=== PATIENT | female | born 1945 | race Caucasian/White ===

== ENCOUNTER → 2020-12-14 | Outpatient (CLI) | payer OTHER | LOC: RAD 09:50 | DX: M25.561 Pain in right knee (principal); M25.562 Pain in left knee; M17.0 Bilateral primary osteoarthritis of knee | CPT/HCPCS: 73564 ==

== ENCOUNTER → 2021-08-13 | Day surgery (SDC) | payer OTHER ==
[~2021-08-13] VITALS: Ht 165.1 cm; Wt 64.0 kg
[~2021-08-13] MED LIST: COLACE100 MG PO; LISINOPRIL5 MG PO
[2021-08-13 10:47] LABS: HEMOGLOBIN 12.7 gm/dl (12.3-15.3); RED BLOOD COUNT 4.38 M/UL (4.00-5.10); WHITE BLOOD COUNT 7.1 K/UL (4.5-11.0)
[2021-08-13 11:02] LABS: BUN/CREATININE RATIO 21 (0-10)
== END | disposition home or self-care (01) ==
LOC: OR 09:42
PROVIDERS: Orthopaedic Surgery
DX: S52.572A Other intraarticular fracture of lower end of left radius, initial encounter for closed fracture (principal); G56.02 Carpal tunnel syndrome, left upper limb; W19.XXXA Unspecified fall, initial encounter; I10 Essential (primary) hypertension; M81.0 Age-related osteoporosis without current pathological fracture; Z20.822 Contact with and (suspected) exposure to COVID-19; Z79.899 Other long term (current) drug therapy; Z90.49 Acquired absence of other specified parts of digestive tract
CPT/HCPCS: 73110; 76000; 80048; 85027; 93005; C1713; J0690; J1100; J2001; J2250; J2405; J2704; J2795; J3010; J7120; U0002

== ENCOUNTER 2021-12-21 09:35 | Inpatient (IN) | payer OTHER ==
[~2021-12-21] VITALS: Ht 165.1 cm; Wt 57.8 kg
[2021-12-21 11:07] LABS: HEMOGLOBIN 13.1 gm/dl (12.3-15.3); RED BLOOD COUNT 4.7 M/UL (4.00-5.10); WHITE BLOOD COUNT 6.3 K/UL (4.5-11.0)
[2021-12-21 11:27] LABS: BUN/CREATININE RATIO 16 (0-10)
[2021-12-21] MEDS ORDERED: MACROBID 100 M100 M1 PO (14:27)
[2021-12-21] MEDS ORDERED: CALCIUM 1,0001 EACH PO (14:28)
[2021-12-21] MEDS ORDERED: VITAMIN B-121000 MCG PO (14:29)
[2021-12-21] MEDS ORDERED: LAXATIVE25 MG PO (14:29)
[2021-12-21] MEDS ORDERED: BIOTIN1 M1 PO (14:29)
[2021-12-22 05:15] LABS: HEMOGLOBIN 11.5 gm/dl (12.3-15.3); WHITE BLOOD COUNT 5.8 K/UL (4.5-11.0)
[2021-12-22 05:17] LABS: RED BLOOD COUNT 4.18 M/UL (4.00-5.10)
[2021-12-22 05:33] LABS: BUN/CREATININE RATIO 12 (0-10)
[2021-12-22 11:19] LABS: HEMOGLOBIN 13.7 gm/dl (12.3-15.3); RED BLOOD COUNT 4.95 M/UL (4.00-5.10); WHITE BLOOD COUNT 7.6 K/UL (4.5-11.0)
[2021-12-23 01:07] LABS: HEMOGLOBIN 11.5 gm/dl (12.3-15.3); RED BLOOD COUNT 4.16 M/UL (4.00-5.10); WHITE BLOOD COUNT 6.5 K/UL (4.5-11.0)
[2021-12-23 02:16] LABS: BUN/CREATININE RATIO 14 (0-10)
[2021-12-24 06:34] LABS: HEMOGLOBIN 12.1 gm/dl (12.3-15.3); RED BLOOD COUNT 4.34 M/UL (4.00-5.10); WHITE BLOOD COUNT 5.8 K/UL (4.5-11.0)
[2021-12-24 07:13] LABS: BUN/CREATININE RATIO 14 (0-10)
[2021-12-24] MEDS ORDERED: ELIQUIS 5 MG TAB5 MG PO (16:59)
[2021-12-24] MEDS ORDERED: OMNICEF 300 MG300 MG PO (16:59)
[2021-12-24] MEDS ORDERED: AMIODARONE HCL200 MG PO (16:59)
[2021-12-24] MEDS ORDERED: LOPRESSOR 25 MG25 MG PO (16:59)
[2021-12-24] MEDS ORDERED: TRAMADOL HCL50 MG PO (17:17)
== END 2021-12-24 18:15 | disposition home or self-care (01) | DRG 309 ==
LOC: ER1 09:35 → PROG CARE 18:26 → CDU 18:26 → PROG CARE 23:00
PROVIDERS: Emergency Medicine; Internal Medicine Cardiovascular Disease; ADMIT Internal Medicine
PROC: B24BZZZ Ultrasonography of Heart with Aorta (ICD-10-PCS; principal; 2021-12-24)
PROC: 5A2204Z Restoration of Cardiac Rhythm, Single (ICD-10-PCS; 2021-12-24)
DX: I48.92 Unspecified atrial flutter (principal); I50.32 Chronic diastolic (congestive) heart failure; M81.0 Age-related osteoporosis without current pathological fracture; R32 Unspecified urinary incontinence; Z96.698 Presence of other orthopedic joint implants; Z20.822 Contact with and (suspected) exposure to COVID-19; I11.0 Hypertensive heart disease with heart failure; I48.0 Paroxysmal atrial fibrillation; I08.1 Rheumatic disorders of both mitral and tricuspid valves; J40 Bronchitis, not specified as acute or chronic; M54.9 Dorsalgia, unspecified; Z79.01 Long term (current) use of anticoagulants; Z98.890 Other specified postprocedural states; Z90.710 Acquired absence of both cervix and uterus; Z98.42 Cataract extraction status, left eye; Z98.41 Cataract extraction status, right eye; Z90.49 Acquired absence of other specified parts of digestive tract; Z82.49 Family history of ischemic heart disease and other diseases of the circulatory system
CPT/HCPCS: ECHO; 0240U; 36415; 71045; 72128; 72131; 80053; 80307; 81001; 82550; 82553; 83605; 83735; 84100; 84439; 84443; 84484; 85025; 85027; 85610; 85730; 87040; 87086; 93005; 93306; 93312; 93320; 96365; 96366; 96367; 96368; 96372; 96375; 96376; 99285; G0378; J0153; J0456; J0696; J1200; J1644; J1650; J2250; J3010; J7030; Q9967

== ENCOUNTER 2021-12-27 20:50 | Emergency (ER) | payer OTHER ==
[~2021-12-27 20:50] MED LIST changes: +AMIODARONE HCL200 MG PO; +BIOTIN1 M1 PO; +CALCIUM 1,0001 EACH PO; +ELIQUIS 5 MG TAB5 MG PO; +LAXATIVE25 MG PO; +LOPRESSOR 25 MG25 MG PO; +MACROBID 100 M100 M1 PO; +OMNICEF 300 MG300 MG PO; +TRAMADOL HCL50 MG PO; +VITAMIN B-121000 MCG PO
[2021-12-27 21:20] LABS: HEMOGLOBIN 11.9 gm/dl (12.3-15.3); RED BLOOD COUNT 4.29 M/UL (4.00-5.10); WHITE BLOOD COUNT 7.7 K/UL (4.5-11.0)
[2021-12-27 21:49] LABS: BUN/CREATININE RATIO 12 (0-10)
== END 2021-12-27 22:04 | disposition home or self-care (01) ==
LOC: ER1 20:50
PROVIDERS: Emergency Medicine
DX: I80.8 Phlebitis and thrombophlebitis of other sites (principal); Z79.01 Long term (current) use of anticoagulants
CPT/HCPCS: 80053; 85025; 85379; 99283

== ENCOUNTER → 2022-01-11 | Outpatient (CLI) | payer OTHER | LOC: EXRD 13:41 | DX: R09.89 Other specified symptoms and signs involving the circulatory and respiratory systems (principal); E04.2 Nontoxic multinodular goiter; I65.23 Occlusion and stenosis of bilateral carotid arteries | CPT/HCPCS: 93880 ==

== ENCOUNTER → 2022-03-13 | Outpatient (CLI) | payer OTHER | LOC: EXRD 03-08 16:00 | DX: E04.1 Nontoxic single thyroid nodule (principal) | CPT/HCPCS: 76536 ==